=== PATIENT | female | born 2000 | race African-American/Black ===

== ENCOUNTER 2020-11-10 13:46 | Outpatient (CLI) | payer OTHER ==
[~2020-11-10 13:46] MED LIST: BACTRIM DS TAB1 EACH PO; BACTROBAN OINT22 GM EXT; CEPHALEXIN500 MG PO
[2020-11-24] MEDS ORDERED: IBUPROFEN800 MG PO (13:46)
[2020-11-24] MEDS ORDERED: DOCUSATE SODIU100 MG PO (13:46)
[2020-11-24] MEDS ORDERED: TYLENOL EXTRA500 MG PO (13:46)
== END 2020-11-10 15:27 | disposition home or self-care (01) ==
LOC: GENOP 13:46
DX: O62.4 Hypertonic, incoordinate, and prolonged uterine contractions (principal); Z3A.37 37 weeks gestation of pregnancy
CPT/HCPCS: 81001; G0463

== ENCOUNTER 2020-11-23 17:21 | Inpatient (IN) | payer OTHER ==
[~2020-11-23] VITALS: Ht 182.9 cm; Wt 104.8 kg
[2020-11-23 18:12] LABS: HEMOGLOBIN 12.5 gm/dl (12.3-15.3); RED BLOOD COUNT 4.21 M/UL (4.00-5.10); WHITE BLOOD COUNT 10.7 K/UL (4.5-11.0)
[2020-11-24] MEDS ORDERED: PRENATAL TABLE1 EAC1 PO (04:51)
[2020-11-24 11:38] LABS: BUN/CREATININE RATIO 12 (0-10)
[2020-11-24] MEDS ORDERED: IBUPROFEN800 MG PO (13:46)
[2020-11-24] MEDS ORDERED: TYLENOL EXTRA500 MG PO (13:46)
[2020-11-24] MEDS ORDERED: DOCUSATE SODIU100 MG PO (13:46)
[2020-11-25 06:27] LABS: HEMOGLOBIN 9.8 gm/dl (12.3-15.3)
[2020-11-26] MEDS ORDERED: FERROUS SULFAT325 M2 PO (10:06)
== END 2020-11-26 13:27 | disposition home or self-care (01) | DRG 807 ==
LOC: OB 17:21
PROVIDERS: Obstetrics & Gynecology; ADMIT Obstetrics & Gynecology
PROC: 10E0XZZ Delivery of Products of Conception, External Approach (ICD-10-PCS; principal; 2020-11-24)
PROC: 10907ZC Drainage of Amniotic Fluid, Therapeutic from Products of Conception, Via Natural or Artificial Opening (ICD-10-PCS; 2020-11-24)
PROC: 0UQMXZZ Repair Vulva, External Approach (ICD-10-PCS; 2020-11-24)
PROC: 3E0234Z Introduction of Serum, Toxoid and Vaccine into Muscle, Percutaneous Approach (ICD-10-PCS; 2020-11-24)
PROC: 3E033VJ Introduction of Other Hormone into Peripheral Vein, Percutaneous Approach (ICD-10-PCS; 2020-11-24)
DX: O13.4 Gestational [pregnancy-induced] hypertension without significant proteinuria, complicating childbirth (principal); Z37.0 Single live birth; Z3A.39 39 weeks gestation of pregnancy; O70.0 First degree perineal laceration during delivery; Z23 Encounter for immunization; O99.334 Smoking (tobacco) complicating childbirth; F17.210 Nicotine dependence, cigarettes, uncomplicated
CPT/HCPCS: 36415; 51702; 80053; 80307; 81001; 82800; 83615; 84550; 85014; 85018; 85025; 90471; 90715; J2590; J7120; U0002